=== PATIENT | male | born 1975 | race Caucasian/White ===

== ENCOUNTER 2017-04-11 21:56 | Emergency (ER) | payer MEDICAID ==
[2017-04-11 21:57] VITALS: BMI 20.5
[2017-04-11 22:03] VITALS: PULSE 68; TEMP 97.6; O2SAT 100
[2017-04-11] MEDS ORDERED: Sodium Chloride 0.9% 1,000 ML IV ONE (22:09)
[2017-04-11] MEDS ORDERED: Sodium Chloride 0.9% 1,000 ML ONE (22:19)
[2017-04-11 22:26] LABS: BASO # 0.1 K/uL (0.0-0.2); BASO % 0.9 % (0.0-2.0); EOS # 0.1 K/uL (0.0-0.7); EOS % 1.2 % (0.0-4.0); LYMPH # 3.2 K/uL (1.0-4.3); LYMPH % 45.3 % (20.0-40.0); MEAN CELL VOLUME 84.9 fL (80.0-94.0); MEAN CORPUSCULAR HEMOGLOBIN 28.3 pg (27.0-31.0); MEAN CORPUSCULAR HGB CONC 33.3 g/dL (33.0-37.0); MONO # 0.6 K/uL (0.0-0.8); MONO % 7.9 % (0.0-10.0); RED CELL DISTRIBUTION WIDTH 12.9 % (11.5-14.5); WHITE BLOOD COUNT 7.1 K/uL (4.8-10.8)
[2017-04-11 22:34] LABS: CHLORIDE 104 mmol/L (98-107); SODIUM 142 mmol/L (132-148)
[2017-04-11 22:36] LABS: AST/SGOT 16 U/L (17-59); BILIRUBIN,TOTAL 0.5 mg/dL (0.2-1.3); CARBON DIOXIDE 28 mmol/L (22-30); GFR AFRICAN-AMERICAN > 60
[2017-04-11 22:37] LABS: ALB/GLOB RATIO 1.4 (1.0-2.1); ALKALINE PHOSPHATASE 44 U/L (38-126); ALT/SGPT 17 U/L (21-72); BLOOD UREA NITROGEN 15 mg/dL (9-20); CALCIUM 9.3 mg/dl (8.6-10.4); GLUCOSE,RANDOM 136 mg/dL (75-110); TOTAL PROTEIN 7.5 g/dL (6.3-8.3)
[2017-04-11 23:16] VITALS: BP 114/71; RESP 16
--- NOTE | 2017-04-12 06:33 | C.PDOC ---
History Of Present Illness Patient is a 42 year old male who presents to the ER with a complaint of mild epigastric pain with 2 episodes of vomiting after using zoloft for the first time today. Prior to taking medication patient had no complaints. Patient is currently feeling better. Denies fever or changes in diet. Chief Complaint (Nursing): Abdominal Pain History Per: Patient History/Exam Limitations: no limitations Onset/Duration Of Symptoms: Hrs Current Symptoms Are (Timing): Still Present Context: Other (Zoloft) Location Of Pain/Discomfort: Epigastric Radiation Of Pain To:: None Quality Of Discomfort: Unable To Describe Associated Symptoms: Vomiting. denies: Fever, Loss Of Appetite Exacerbating Factors: None Alleviating Factors: None Recent travel outside of the [place]: No Past Medical History Reviewed: Historical Data, Nursing Documentation, Vital Signs Vital Signs: Last Vital Signs Temp 97.6 F 04/11/17 23:15 Pulse 68 04/11/17 23:15 Resp 16 04/11/17 23:15 BP 114/71 04/11/17 23:15 Pulse Ox 100 04/12/17 06:38 - Medical History PMH: No Chronic Diseases Surgical History: No Surg Hx Family History: States: Unknown Family Hx - Social History Hx Alcohol Use: No Hx Substance Use: No - Immunization History Hx Tetanus Toxoid Vaccination: No Hx Influenza Vaccination: No Hx Pneumococcal Vaccination: No Review Of Systems Constitutional: Negative for: Fever Gastrointestinal: Positive for: Vomiting, Abdominal Pain (Epigastric) Physical Exam - Physical Exam Appears: Non-toxic, No Acute Distress Skin: Warm, Dry, Other (Neurofibromatosis lesions diffusely thoughout body) Head: Atraumatic, Normacephalic Oral Mucosa: Moist Chest: Symmetrical, No Tenderness Cardiovascular: Rhythm Regular, No Murmur Respiratory: Normal Breath Sounds, No Rales, No Rhonchi, No Wheezing Gastrointestinal/Abdominal: Soft, No Tenderness Neurological/Psych: Oriented x3, Normal Speech, Normal Cognition ED Course And Treatment - Laboratory Results Result Diagrams: 04/11/17 22:22 04/11/17 22:22 O2 Sat by Pulse Oximetry: 100 (Room air) Pulse Ox Interpretation: Normal Progress Note: Zofran, pepcid and IV fluids administered. Disposition - [facility] - Disposition: HOME/ ROUTINE Disposition Time: 10:50 Condition: IMPROVED Additional Instructions: Thank you for letting us take care of you today. Your provider was Dr. Queen. You were treated for gastritis. The emergency medical care you received today was directed at your acute symptoms. If you were prescribed any medication, please fill it and take as directed. It may take several days for your symptoms to resolve. Return to the Emergency Department if your symptoms worsen, do not improve, or if you have any other problems. Please contact your doctor or call one of the physicians/clinics you have been referred to that are listed on the Patient Visit Information form that is included in your discharge packet. Bring any paperwork you were given at discharge with you along with any medications you are taking to your follow up visit. Our treatment cannot replace ongoing medical care by a primary care provider (PCP) outside of the emergency department. Thank you for allowing the [facility] team to be part of your care today. Stop taking the medication that you had a side effect to and follow up with your doctor in 2-3 days for re-evaluation. Instructions: Gastritis (ED) - Clinical Impression Clinical Impression: Gastritis - Scribe Statement The provider has reviewed the documentation as recorded by the Scribjessica Real All medical record entries made by the Edinsonibjessica were at my direction and personally dictated by me. I have reviewed the chart and agree that the record accurately reflects my personal performance of the history, physical exam, medical decision making, and the department course for this patient. I have also personally directed, reviewed, and agree with the discharge instructions and disposition.
== END 2017-04-11 23:21 | disposition home or self-care (01) ==
LOC: C.ER 21:56
DX: K29.70 Gastritis, unspecified, without bleeding (principal)
CPT/HCPCS: 80053; 83690; 85025; 96361; 96374; 96375; 99284; J2405; J7040

== ENCOUNTER 2017-04-21 19:00 | Emergency (ER) | payer MEDICAID ==
[2017-04-21 19:00] VITALS: BMI 20.5
--- NOTE | 2017-04-21 19:40 | C.PDOC ---
History Of Present Illness 42 y/o male with h/o of neurofibromatosis c/o persistent right sided headache x 1 week with intemittent dizziness. Pt denies visual c/o, nausea, vomiting , head trauma or extremity weakness or numbness. Pt denies past h/o of chronic headache. Pt has not taken anything for the pain. De Time Seen by Provider: 04/21/17 19:24 Chief Complaint (Nursing): Headache History Per: Patient Onset/Duration Of Symptoms: Gradual (1 week) Current Symptoms Are (Timing): Still Present Severity: Moderate Quality: Tightness, "Pain" Preceeding Symptoms: None Associated Symptoms: denies: Photophobia, Blurred Vision, Vomiting, Extremity Weakness Past Medical History Vital Signs: Last Vital Signs Temp 97.2 F L 04/21/17 22:21 Pulse 71 04/21/17 22:21 Resp 16 04/21/17 22:21 BP 121/71 04/21/17 22:21 Pulse Ox 97 04/21/17 22:21 - Medical History Other PMH: Neurofibromatosis Family History: States: Unknown Family Hx - Social History Hx Alcohol Use: No Hx Substance Use: No - Immunization History Hx Tetanus Toxoid Vaccination: No Hx Influenza Vaccination: No Hx Pneumococcal Vaccination: No Review Of Systems Constitutional: Negative for: Fever Eyes: Negative for: Vision Change ENT: Negative for: Ear Pain Musculoskeletal: Negative for: Neck Pain Neurological: Positive for: Headache, Dizziness (intermittent). Negative for: Weakness, Numbness, Change in Speech Physical Exam - Physical Exam Appears: Well, Non-toxic, No Acute Distress Skin: Other (diffuse non tender nodules of neurofibromatosis- chronic involving neck and scalp) Head: Atraumatic Eye(s): bilateral: Normal Inspection, PERRL, EOMI Nose: Normal, No Discharge Neck: Normal, No Paracervical Tenderness, Supple Extremity: Normal ROM Neurological/Psych: Oriented x3, Normal Speech, Normal Cognition, Normal Motor, Normal Sensation, No Other (focal deficits) Gait: Steady ED Course And Treatment O2 Sat by Pulse Oximetry: 100 Pulse Ox Interpretation: Normal - CT Scan/US CT Head Other Rad Studies (CT/US): Read By Radiologist, Radiology Report Reviewed CT/US Interpretation: EXAM: CT Head Without Intravenous Contrast. CLINICAL HISTORY: 42 years old, male; Pain; Headache; Headache not specified; Additional info: Headache, dizziness,. h/o neurofibromatosis. TECHNIQUE: Axial computed tomography images of the head/brain without intravenous contrast. This CT exam. was performed using one or more of the following dose reduction techniques: automated exposure. control, adjustment of the mA and/or kV according to patient size, and/or use of iterative. reconstruction technique. EXAM DATE/TIME: 04/21/2017 7:32 PM. COMPARISON: There are no prior studies for comparison. FINDINGS: Brain: Ventricles are normal in size and configuration. There is no midline shift. There is mild. prominence of sulci and gyri. There are no intra-axial or extra-axial mass lesions or areas of. hemorrhage. There are no abnormal fluid collections. Juarez-white differentiation is maintained. Ventricles: See above. Bones: Cranial vault is intact. Soft tissues: There is skin thickening and nodularity greatest in the parietal regions bilaterally. There. are small cutaneous nodules. Sinuses: There is no acute sinusitis. Ears and mastoids: Middle ears and mastoids are unremarkable. Orbits: Orbital contents are unremarkable. IMPRESSION: No acute intracranial abnormality Progress Note: Toradol IM ordred, head CT ordered Reassessment Condition: Improved (feels better, d/w pt results of head CT and pt agrees with plan and requesting to leave) Disposition Counseled Patient/Family Regarding: Diagnosis, Need For Followup, Rx Given - Disposition Disposition: HOME/ ROUTINE Disposition Time: 22:04 Condition: STABLE Additional Instructions: Increase PO fluids Take medications as directed Follow up with PMD Return to ER if worse Prescriptions: Ibuprofen [Motrin] 600 mg PO Q6H #30 tab Instructions: Acute Headache (ED) Print Language: TAIWANESE - Clinical Impression Clinical Impression: Headache
--- NOTE | 2017-04-21 21:23 | CT ---
EXAM: CT Head Without Intravenous Contrast CLINICAL HISTORY: 42 years old, male; Pain; Headache; Headache not specified; Additional info: Headache, dizziness, h/o neurofibromatosis TECHNIQUE: Axial computed tomography images of the head/brain without intravenous contrast. This CT exam was performed using one or more of the following dose reduction techniques: automated exposure control, adjustment of the mA and/or kV according to patient size, and/or use of iterative reconstruction technique. EXAM DATE/TIME: 04/21/2017 7:32 PM COMPARISON: There are no prior studies for comparison. FINDINGS: Brain: Ventricles are normal in size and configuration. There is no midline shift. There is mild prominence of sulci and gyri. There are no intra-axial or extra-axial mass lesions or areas of hemorrhage. There are no abnormal fluid collections. Juarez-white differentiation is maintained. Ventricles: See above. Bones: Cranial vault is intact. Soft tissues: There is skin thickening and nodularity greatest in the parietal regions bilaterally. There are small cutaneous nodules. Sinuses: There is no acute sinusitis. Ears and mastoids: Middle ears and mastoids are unremarkable Orbits: Orbital contents are unremarkable. IMPRESSION: No acute intracranial abnormality
[2017-04-21 22:21] VITALS: BP 121/71; PULSE 71; RESP 16; TEMP 97.2
[2017-04-22 07:21] VITALS: O2SAT 100
== END 2017-04-21 22:22 | disposition home or self-care (01) ==
LOC: C.ER 19:00
DX: R51 Headache (principal)
CPT/HCPCS: 70450; 96372; 99284; J1885

== ENCOUNTER 2017-07-12 00:22 | Emergency (ER) | payer MEDICAID ==
[2017-07-12 00:22] VITALS: BMI 20.5
--- NOTE | 2017-07-12 00:47 | C.PDOC ---
History Of Present Illness 42yo male, presents to the ED complaining of palpitations after using a cream to stimulate an erection. The patient reports he was prescribed the cream by his urologist. He currently denies any chest pain or shortness of breath. No other medical complaints. Time Seen by Provider: 07/12/17 00:47 Chief Complaint (Nursing): Palpitations History Per: Patient History/Exam Limitations: no limitations Onset/Duration Of Symptoms: Mins Associated Symptoms: denies: Chest Pain Exacerbating Factor(s): Pos: None Recent travel outside of the [place]: No Past Medical History Reviewed: Historical Data, Nursing Documentation, Vital Signs Vital Signs: Last Vital Signs Temp 98.1 F 07/12/17 00:38 Pulse 73 07/12/17 00:38 Resp 18 07/12/17 00:38 BP 113/74 07/12/17 00:38 Pulse Ox 99 07/12/17 01:06 - Medical History PMH: No Chronic Diseases Denies: Chronic Kidney Disease Surgical History: No Surg Hx Family History: States: Unknown Family Hx - Social History Hx Alcohol Use: No Hx Substance Use: No - Immunization History Hx Tetanus Toxoid Vaccination: No Hx Influenza Vaccination: No Hx Pneumococcal Vaccination: No Review Of Systems Cardiovascular: Positive for: Palpitations. Negative for: Chest Pain Respiratory: Negative for: Shortness of Breath Physical Exam - Physical Exam Appears: Non-toxic, No Acute Distress Skin: Warm, Dry, Other (diffuse neurofibromatosis) Head: Normacephalic Eye(s): bilateral: Normal Inspection Oral Mucosa: Moist Chest: Symmetrical Cardiovascular: Rhythm Regular Respiratory: No Decreased Breath Sounds, No Accessory Muscle Use Gastrointestinal/Abdominal: Bowel Sounds, Soft, No Tenderness Extremity: No Deformity, No Swelling Neurological/Psych: Oriented x3, Normal Speech, Normal Cognition ED Course And Treatment - Laboratory Results Result Diagrams: 07/12/17 01:01 07/12/17 01:01 ECG: Interpreted By Me, Viewed By Me ECG Rhythm: Sinus Rhythm (72), Nonspecific Changes O2 Sat by Pulse Oximetry: 99 (RA) Pulse Ox Interpretation: Normal - Radiology CXR: Interpreted by Me, Viewed By Me Progress Note: Labs, EKG ordered Reevaluation Time: 02:33 Reassessment Condition: Improved Medical Decision Making Medical Decision Making: Upon provider reevaluation patient is feeling better, is medically stable, and requires no further treatment in the ED at this time. Patient will be discharged home . Counseling was provided and all questions were answered regarding diagnosis and need for follow up with the referred clinic. There is agreement to discharge plan. Return if symptoms persist or worsen. Disposition Counseled Patient/Family Regarding: Studies Performed, Diagnosis, Need For Followup - Disposition Referrals: [facility] [Outside] [facility] [Outside] Disposition: HOME/ ROUTINE Disposition Time: 00:47 Condition: FAIR Instructions: Palpitations (ED) Forms: [employer] (Khmer) - Clinical Impression Clinical Impression: Medication reaction - Scribe Statement The provider has reviewed the documentation as recorded by the Lela Boudreaux Provider Attestation: All medical record entries made by the Lela were at my direction and personally dictated by me. I have reviewed the chart and agree that the record accurately reflects my personal performance of the history, physical exam, medical decision making, and the department course for this patient. I have also personally directed, reviewed, and agree with the discharge instructions and disposition.
[2017-07-12 01:03] LABS: BASO % 0.9 % (0.0-2.0); EOS # 0.1 K/uL (0.0-0.7); EOS % 1.3 % (0.0-4.0); HEMATOCRIT 42.6 % (35.0-51.0); LYMPH # 2.2 K/uL (1.0-4.3); LYMPH % 37.4 % (20.0-40.0); MEAN CELL VOLUME 85.8 fL (80.0-94.0); MEAN CORPUSCULAR HEMOGLOBIN 29.1 pg (27.0-31.0); MEAN CORPUSCULAR HGB CONC 33.9 g/dL (33.0-37.0); MEAN PLATELET VOLUME 8.3 fL (7.2-11.7); MONO # 0.5 K/uL (0.0-0.8); MONO % 9.1 % (0.0-10.0); NRBC % 0.1 % (0.0-2.0); RED CELL DISTRIBUTION WIDTH 12.7 % (11.5-14.5); WHITE BLOOD COUNT 5.8 K/uL (4.8-10.8)
[2017-07-12 01:14] LABS: CHLORIDE 103 mmol/L (98-107); POTASSIUM 4.1 mmol/L (3.6-5.2); SODIUM 140 mmol/L (132-148)
[2017-07-12 01:16] LABS: ALB/GLOB RATIO 1.5 (1.0-2.1); ALKALINE PHOSPHATASE 38 U/L (38-126); AST/SGOT 14 U/L (17-59); BILIRUBIN,TOTAL 0.5 mg/dL (0.2-1.3); CARBON DIOXIDE 24 mmol/L (22-30); GFR AFRICAN-AMERICAN > 60; TOTAL PROTEIN 7.2 g/dL (6.3-8.3)
[2017-07-12 01:17] LABS: ALT/SGPT 21 U/L (21-72); BLOOD UREA NITROGEN 16 mg/dL (9-20); CALCIUM 8.8 mg/dl (8.6-10.4); GLUCOSE,RANDOM 102 mg/dL (75-110)
[2017-07-12 01:48] LABS: THYROID STIMULATING HORMONE 3.82 mIU/L (0.46-4.68)
[2017-07-12 02:56] VITALS: BP 114/72; PULSE 80; RESP 20; TEMP 98.3; O2SAT 98
== END 2017-07-12 02:55 | disposition home or self-care (01) ==
LOC: C.ER 00:22
DX: T50.995A Adverse effect of other drugs, medicaments and biological substances, initial encounter (principal); Y92.89 Other specified places as the place of occurrence of the external cause